=== PATIENT | female | born 1985 | race Caucasian/White ===

== ENCOUNTER 2017-03-02 15:59 | Emergency (ER) | payer BC ==
[2017-03-02] MEDS ORDERED: NS 0.9% 1000 ML* 1,000 ML IV ONE (19:50)
[2017-03-02 20:19] LABS: Hematocrit 36 % (35-47); Hemoglobin 12.6 g/dl (12.0-16.0); Mean Corpuscular HGB Conc 35 g/dl (31-36); Mean Corpuscular Hemoglobin 31 pg (27-31); Mean Corpuscular Volume 88 fL (80-97); Mean Platelet Volume 8 um3 (7.4-10.4); Red Blood Count 4.11 10^6/ul (4.0-5.4); Red Cell Distribution Width 13 % (10.5-15); White Blood Count 8.7 10^3/ul (3.5-10.8)
--- NOTE | 2017-03-02 20:19 | ED ---
Sadia Alvarado Thomas, scribed for Booker Degroot MD on 03/02/17 at 1953 . Abdominal Pain/Female - HPI Summary HPI Summary: The pt is a 31 y/o F presenting to the ED c/o upper abd pain that began 5 days ago. She rates the pain 4/10 and the pain radiates to the lower back. The pain is worsened by solid food intake. Additionally c/o diarrhea, VIVAR, hematuria, and fever. She denies vomiting. The pt has a Hx of IBS, and she claims that her current pain and Sx are unlike those she normally has with IBS. She saw her PCP yesterday and today, and he PCP advised her to present to the ED for a CT scan. - History of Current Complaint Chief Complaint: EDAbdPain Stated Complaint: ABD PAIN,FEVER,DIARRHEA Time Seen by Provider: 03/02/17 19:45 Hx Obtained From: Patient Onset/Duration: Lasting Days - began 5 days ago, Still Present, Worse Since - 1 day ago Timing: Constant Severity Currently: Moderate Pain Intensity: 4 Pain Scale Used: 0-10 Numeric Location: Other - POS: upper abd Radiates: Yes Radiates to: Back - lower Aggravating Factor(s): Food - solid Alleviating Factor(s): Nothing Associated Signs and Symptoms: Positive: Fever, Diarrhea, Other: - POS: VIVAR, hematuria. Negative: Vomiting Allergies/Adverse Reactions: Allergies Allergy/AdvReac Type Severity Reaction Status Date / Time Meperidine [From Demerol HCl] Allergy Intermediate Hives Verified 08/29/13 09:34 Oxycodone Allergy Intermediate Hives Verified 08/29/13 09:34 Sulfamethoxazole Allergy Intermediate Hives Verified 08/29/13 09:34 w/Trimethoprim [From Bactrim] PMH/Surg Hx/FS Hx/Imm Hx Previously Healthy: No GI History: Reports: Hx Irritable Bowel Infectious Disease History: No Infectious Disease History: Denies: Traveled Outside the [place] in Last 30 Days - Family History Known Family History: Positive: Hypertension, Other - POS: colon CA, uterine CA , CVA - Social History Alcohol Use: None Substance Use Type: Reports: None Review of Systems Positive: Fever Eyes: Negative ENT: Negative Cardiovascular: Negative Respiratory: Negative Positive: Abdominal Pain - upper, onset 5 days ago, radiates to lower back, 4/10 , worsened solid food, Diarrhea. Negative: Vomiting Positive: hematuria Musculoskeletal: Negative Skin: Negative Positive: Headache Psychological: Normal All Other Systems Reviewed And Are Negative: Yes Physical Exam Triage Information Reviewed: Yes Vital Signs On Initial Exam: Initial Vitals Temp Pulse Resp BP Pulse Ox 100.2 F 110 17 129/71 99 03/02/17 16:06 03/02/17 16:06 03/02/17 16:06 03/02/17 16:06 03/02/17 16:06 Vital Signs Reviewed: Yes Appearance: Positive: Well-Appearing, No Pain Distress Skin: Positive: Warm Head/Face: Positive: Normal Head/Face Inspection Eyes: Positive: CHARLEY ENT: Positive: Hearing grossly normal Neck: Positive: Supple Respiratory/Lung Sounds: Positive: Clear to Auscultation, Breath Sounds Present Cardiovascular: Positive: RRR Abdomen Description: Positive: Nontender, No Organomegaly, Soft Bowel Sounds: Positive: Present Musculoskeletal: Positive: Strength/ROM Intact Neurological: Positive: Alert, Oriented to Person Place, Time Psychiatric: Positive: Affect/Mood Appropriate Diagnostics - Vital Signs Vital Signs Temp Pulse Resp BP Pulse Ox 03/02/17 19:14 99.6 F 82 16 116/67 100 03/02/17 18:27 100.7 F 91 20 113/64 100 03/02/17 16:11 100.2 F 110 17 129/71 99 03/02/17 16:06 100.2 F 110 17 129/71 99 - Laboratory Result Diagrams: 03/02/17 20:05 03/02/17 20:05 Lab Statement: Any lab studies that have been ordered have been reviewed, and results considered in the medical decision making process. - CT CT Abd/Pel CT Interpretation: No Acute Changes - 1. Given contiguous mural thickening of the colon from the rectum through the cecum and only short segment mild mural thickening at the terminal ileum consider infectious colitis as well as ulcerative colitis. Given absence of skip lesions Crohn's disease would be less likely. No significant perienteric inflammatory change or evidence for perienteric abscess or fistula formation evident. Negative for free air. Only a small physiologic volume of free fluid is noted in the cul-de-sac. 2. Normal appendix documented. 3. Negative for obstructive uropathy. 4. Negative for lymphadenopathy or organomegaly. CT Interpretation Completed By: Radiologist Re-Evaluation - Re-Evaluation First Eval Change: Improved - results d/w pt Abdominal Pain Fem Course/Dx - Diagnoses Provider Diagnoses: Abdominal pain Discharge - Discharge Plan Condition: Improved Disposition: HOME Patient Education Materials: Abdominal Pain (ED) Referrals: Lety Augiar DO [Primary Care Provider] - 3 Days The documentation as recorded by the Sadia jauregui Thomas accurately reflects the service I personally performed and the decisions made by me, Booker Degroot MD.
[2017-03-02 20:34] LABS: Albumin 4.5 g/dL (3.2-5.2); BUN/Creatinine Ratio 10.7 (8-20); C Reactive Protein 72.98 mg/L (< 5.00); Calcium 9.6 mg/dL (8.6-10.3); EGFR African American 116.7 (>60); EGFR Non-African American 90.7 (>60); Globulin 2.9 g/dL (2-4); Total Bilirubin 0.8 mg/dL (0.2-1.0); Total Protein 7.4 g/dL (6.4-8.9)
[2017-03-02 20:38] LABS: Manual Entry Verification MR; UR Preg Internal Control QC Line Present
[2017-03-02 20:39] LABS: Potassium 3.5 mmol/L (3.5-5.0)
[2017-03-02] MEDS ORDERED: Iohexol 300* (CONTRAST) 10 ML SDV IV ONE (20:39)
[2017-03-02 20:42] LABS: Urine Bacteria Absent (Absent); Urine Bilirubin Negative (Negative); Urine Glucose Negative (Negative); Urine Nitrite Negative (Negative)
[2017-03-02 22:34] VITALS: BP 115/70
--- NOTE | 2017-03-02 22:54 | RAD ---
INDICATION: Abdominal pain. History of irritable bowel syndrome. Blood in stool. Fever. History of nephrolithiasis. COMPARISON: January 25, 2012 renal ultrasound. TECHNIQUE: Multidetector CT images were obtained from the lung bases to the ischial tuberosities with 72 mL Omnipaque 300 IV and oral contrast. Multiplanar reformation. REPORT: A few tiny basilar lung nodules are noted measuring 2 mm or smaller of doubtful clinical significance. Negative for pleural effusions. 17.9 cm normal density liver. No focal hepatic lesions or biliary dilatation. No CT abnormality of the gallbladder, pancreas, spleen. Small splenule at the anterior splenic hilum. Negative for CT abnormality of the upper GI, unremarkable CT appearance of the upper GI and small bowel through the distal ileum. Normal appendix visualized medial to the cecum most conspicuous on coronal reformatted series images 25-32. There is mild mural thickening at the terminal ileum. There is contiguous mural thickening of the colon from the cecum to the rectum. Enteric contrast extends to the proximal transverse colon. The colon is decompressed distal to the proximal transverse colon. No significant perienteric inflammatory change evident. Small volume of free pelvic fluid at the cul-de-sac. Negative for free air negative for hernias. Normal adrenal glands. Symmetric nephrograms and pyelograms. The LEFT kidney is diminutive in size and remarkable for cortical scarring at the upper pole and an exophytic 3.3 cm cyst at the posterior midpole. No suspicious focal renal lesions, conspicuous stones, or hydronephrosis. No suspicious finding along the course of the nondilated ureters. Unremarkable urinary bladder as well as the anteverted uterus and LEFT adnexal region. 1.5 cm follicular or hemorrhagic cyst at the RIGHT ovary without concern based on small size. Negative for lymphadenopathy. Unremarkable abdominal aorta and iliac arteries. Physiologic distention of the IVC. No suspicious focal osseous lesions evident. Negative for stigmata of sacroiliitis or other significant arthropathic change. IMPRESSION: 1. Given contiguous mural thickening of the colon from the rectum through the cecum and only short segment mild mural thickening at the terminal ileum consider infectious colitis as well as ulcerative colitis. Given absence of skip lesions Crohn's disease would be less likely. No significant perienteric inflammatory change or evidence for perienteric abscess or fistula formation evident. Negative for free air. Only a small physiologic volume of free fluid is noted in the cul-de-sac. 2. Normal appendix documented. 3. Negative for obstructive uropathy. 4. Negative for lymphadenopathy or organomegaly.
== END 2017-03-02 23:29 | disposition home or self-care (01) ==
LOC: ED 15:59
DX: R50.9 Fever, unspecified (principal); R19.7 Diarrhea, unspecified; R51 Headache; R31.9 Hematuria, unspecified
CPT/HCPCS: 36415; 74177; 80053; 81003; 81015; 81025; 83605; 83690; 85025; 86140; 87086; 99282; Q9967